=== PATIENT | female | born 1990 | race Two or more races ===

== ENCOUNTER 2019-02-16 09:08 | Emergency (ER) ==
[~2019-02-16] VITALS: Ht 152.4 cm; Wt 72.6 kg
[2019-02-16 09:35] VITALS: BP 120/74
== END 2019-02-16 10:12 | disposition home or self-care (01) ==
LOC: ER 09:08
DX: Z76.0 Encounter for issue of repeat prescription (principal); F32.9 Major depressive disorder, single episode, unspecified; F43.10 Post-traumatic stress disorder, unspecified; Z98.890 Other specified postprocedural states

== ENCOUNTER 2019-02-27 12:25 | Emergency (ER) | payer SELFPAY ==
[~2019-02-27] VITALS: Ht 152.4 cm; Wt 72.1 kg
[2019-02-27 12:25] VITALS: BP 128/71
== END 2019-02-27 13:01 | disposition home or self-care (01) ==
LOC: ER 12:26
DX: F31.9 Bipolar disorder, unspecified (principal); F43.10 Post-traumatic stress disorder, unspecified; Z98.890 Other specified postprocedural states